=== PATIENT | male | born 1990 | race Caucasian/White ===

== ENCOUNTER 2016-12-30 04:06 | Emergency (ER) | payer BC ==
[2016-12-30] MEDS ORDERED: IPRATROPIUM/ALBUTEROL 0.5-2.5 MG/3 ML AMPUL NEB ONE ×2 (04:15→05:53)
[2016-12-30] MEDS ORDERED: PREDNISONE 20 MG TABLET PO ONE (04:15)
[2016-12-30] MEDS: ALBUTEROL SULFATE 0.083% NEB 2.5 MG/3 ML AMPUL NEB SCH ×2 (04:21→08:04)
--- NOTE | 2016-12-30 06:01 | ER Document Report ---
ED Respiratory Problem - General Mode of Arrival: Ambulatory Information source: Patient TRAVEL OUTSIDE OF THE [place] IN LAST 30 DAYS: No - HPI Patient complains to provider of: Cough, Short of breath Onset: Yesterday Duration: Continuous Context: Other - see HPI Associated symptoms: Other - See HPI <EDWARD PERERA - Last Filed: 12/30/16 06:04> <REGGIE MADDOX - Last Filed: 12/30/16 07:13> - General Chief Complaint: Shortness Of Breath Stated Complaint: CHEST PAIN/DIFFICULTY BREATHING Notes: 26 year old male with no prior medical problems (asthma as a child) presents to the ED complaining of shortness of breath that started yesterday. Patient reports that he has had a cough and a "deep chest burning" for the past 2 days. Patient has received a breathing treatment and reports that it helped temporarily. Patient denies abdominal pain. Patient had the flu 3 weeks ago. Patient denies history of blood clots or smoking. (EDWARD PERERA) - Related Data Allergies/Adverse Reactions: amoxicillin [Amoxicillin] Allergy (Verified 12/30/16 04:13) cefaclor [From Ceclor] Allergy (Verified 12/30/16 04:13) sulfamethoxazole [From Septra] Allergy (Verified 12/30/16 04:13) trimethoprim [From Septra] Allergy (Verified 12/30/16 04:13) Past Medical History - General Information source: Patient - Social History Smoking Status: Never Smoker Chew tobacco use (# tins/day): No Frequency of alcohol use: None Drug Abuse: None Family History: Hypertension - Medical History Medical History: Negative Renal/ Medical History: Denies: Hx Peritoneal Dialysis Surgical Hx: Negative - Immunizations Hx Diphtheria, Pertussis, Tetanus Vaccination: Yes <EDWARD PERERA - Last Filed: 12/30/16 06:04> Review of Systems - Review of Systems Constitutional: See HPI, Recent illness - flu 3 weeks ago EENT: No symptoms reported Cardiovascular: See HPI, Chest pain - "burning" Respiratory: See HPI, Cough, Short of breath Gastrointestinal: No symptoms reported. denies: Abdominal pain Genitourinary: No symptoms reported Male Genitourinary: No symptoms reported Musculoskeletal: No symptoms reported Skin: No symptoms reported Hematologic/Lymphatic: No symptoms reported Neurological/Psychological: No symptoms reported -: Yes All other systems reviewed and negative <PERERAEDWARD - Last Filed: 12/30/16 06:04> Physical Exam - Vital signs Interpretation: Tachycardic - General General appearance: Alert In distress: None - HEENT Head: Normocephalic, Atraumatic Eyes: Normal Extraocular movements intact: Yes Pupils: PERRL - Respiratory Respiratory status: No respiratory distress - Patient had already received a breathing treatment prior to examination. Breath sounds: Wheezing - slight expiratory wheeze bilaterally. - Cardiovascular Rhythm: Regular, Tachycardia Heart sounds: Normal auscultation - Abdominal Inspection: Normal - Back Back: Normal - Extremities General upper extremity: Normal inspection, Normal ROM General lower extremity: Normal inspection, Normal ROM - Neurological Neuro grossly intact: Yes Cognition: Normal Orientation: AAOx4 [place] Coma Scale Eye Opening: Spontaneous Lisa Coma Scale Verbal: Oriented [place] Coma Scale Motor: Obeys Commands [place] Coma Scale Total: 15 Speech: Normal - Psychological Associated symptoms: Normal affect, Normal mood - Skin Skin Temperature: Warm Skin Moisture: Dry Skin Color: Normal <PERERAEDWARD - Last Filed: 12/30/16 06:04> Course <PERERAEDWARD - Last Filed: 12/30/16 06:04> - Diagnostic Test Radiology reviewed: Image reviewed, Reports reviewed <REGGIE MADDOX - Last Filed: 12/30/16 07:13> - Re-evaluation Re-evalutation: 12/30/16 07:10 Patient feels better after breathing treatment and steroids. No acute findings on x-ray. Patient will be discharged home with inhaler and steroids. Follow- up with PMD. Return if any worsening or concerning symptoms. Stable for discharge. Grateful for care. (REGGIE MADDOX) - Vital Signs Vital signs: Temp Pulse Resp BP Pulse Ox 98.3 F 139 H 28 H 136/100 H 99 12/30/16 04:11 12/30/16 04:11 12/30/16 04:11 12/30/16 04:11 12/30/16 04:11 Discharge <EDWARD PERERA - Last Filed: 12/30/16 06:04> <REGGIE MADDOX - Last Filed: 12/30/16 07:13> - Discharge Clinical Impression: Bronchospasm Condition: Stable Disposition: HOME, SELF-CARE Instructions: Bronchospasm ([facility]) Prescriptions: Albuterol Sulfate [Proair HFA Inhalation Aerosol 8.5 gm MDI] 2 puff IH Q4H PRN # 1 mdi PRN Reason: Prednisone [Deltasone 20 mg Tablet] 40 mg PO DAILY #6 tablet Forms: Return to Work Scribe Attestation: 12/30/16 07:13 I personally performed the services described in the documentation, reviewed and edited the documentation which was dictated to the scribe in my presence, and it accurately records my words and actions. (REGGIE MADDOX) Scribe Documentation - Scribe Written by Doroteo:: Doroteo Arteaga, 12/30/2016 0602 acting as scribe for :: Harvey <EDWARD PERERA - Last Filed: 12/30/16 06:04>
[2016-12-30] MEDS ORDERED: ALBUTEROL SULFATE HFA (90 MCG/PUFF) 8 GM MDI (1 MDI/ER DISP) IH ONE (07:11)
[2016-12-30] MEDS ORDERED: KETOROLAC TROMETHAMINE INJ/PF 30 MG/1 ML SDV IV ONE (07:15)
[2016-12-30 08:54] VITALS: BP 118/70
--- NOTE | 2016-12-30 09:31 | EKG REPORT ---
SEVERITY:- BORDERLINE ECG - SINUS TACHYCARDIA BORDERLINE T ABNORMALITIES, INFERIOR LEADS : Confirmed by: Madhavi Goldstein 30-Dec-2016 09:30:49
== END 2016-12-30 07:25 | disposition home or self-care (01) ==
LOC: ER 04:06
DX: J98.01 Acute bronchospasm (principal); R06.02 Shortness of breath; R07.9 Chest pain, unspecified; R05 Cough
CPT/HCPCS: 93005; 94640 ×2; 99285; 71020; 93010; J7512; J3490; J7620

== ENCOUNTER 2019-03-06 19:04 | Emergency (ER) | payer BC ==
[2019-03-06] MEDS ORDERED: KETOROLAC TROMETHAMINE INJ/PF 30 MG/1 ML SDV IV ONE (19:20)
[2019-03-06] MEDS ORDERED: ONDANSETRON HCL INJ/PF 4 MG/2 ML SDV IV ONE (19:20)
--- NOTE | 2019-03-06 19:21 | ER Document Report ---
ED Medical Screen (RME) - General Chief Complaint: Abdominal Pain Stated Complaint: NAUSEA,RIGHT FLANK PAIN,DIARRHEA Time Seen by Provider: 03/06/19 19:14 Mode of Arrival: Ambulatory Information source: Patient Notes: Patient presents complaining of 4-day history of right low back pain that radiates to right lower quadrant. Patient states he does have nausea and has had diarrhea x6 episodes. Patient denies any fever or urinary symptoms. Patient does have a rash to the right upper extremity as well. I have greeted and performed a rapid initial assessment of this patient. A comprehensive ED assessment and evaluation of the patient, analysis of test results and completion of the medical decision making process will be conducted by additional ED providers. TRAVEL OUTSIDE OF THE [place] IN LAST 30 DAYS: No - Related Data Allergies/Adverse Reactions: amoxicillin [Amoxicillin] Allergy (Verified 03/06/19 19:05) cefaclor [From Ceclor] Allergy (Verified 03/06/19 19:05) sulfamethoxazole [From Septra] Allergy (Verified 03/06/19 19:05) trimethoprim [From Septra] Allergy (Verified 03/06/19 19:05) Past Medical History Renal/ Medical History: Denies: Hx Peritoneal Dialysis - Immunizations Hx Diphtheria, Pertussis, Tetanus Vaccination: Yes Physical Exam - Vital signs Vitals: Temp Pulse Resp BP Pulse Ox 98.2 F 92 18 174/109 H 97 03/06/19 19:08 03/06/19 19:08 03/06/19 19:08 03/06/19 19:08 03/06/19 19:08 - Back Back: CVA tenderness - Right Course - Vital Signs Vital signs: Temp Pulse Resp BP Pulse Ox 98.2 F 92 18 174/109 H 97 03/06/19 19:08 03/06/19 19:08 03/06/19 19:08 03/06/19 19:08 03/06/19 19:08
--- NOTE | 2019-03-06 21:06 | RADIOLOGY REPORT (SQ) ---
EXAM DESCRIPTION: CT ABDOMEN PELVIS WITHOUT IV CONTRAST COMPLETED DATE/TME: 03/06/2019 19:19 CLINICAL HISTORY: R flank, RLQ pain COMPARISON: None Available TECHNIQUE: Contiguous axial images of the abdomen and pelvis were obtained followed by reconstruction images. This exam was performed according to our departmental dose-optimization program, which includes automated exposure control, adjustment of the mA and/or kV according to patient size and/or use of iterative reconstruction technique. FINDINGS: There is a posterior right diaphragmatic hernia with fatty component only, Bochdalek hernia. The liver is of decreased attenuation compatible with fatty infiltration. Calcifications within the pelvis compatible with phleboliths. The liver, spleen, pancreas and kidneys are otherwise within normal limits. There is no hydronephrosis or renal stones. The gallbladder is unremarkable by CT criteria. Adrenal glands are within normal limits. Aorta is of normal caliber and tapering. There is no free fluid in the abdomen or pelvis. There is no bowel obstruction. There is no stranding of the mesenteric fat to suggest an inflammatory response. The appendix is within normal limits. There is no pericecal inflammation. IMPRESSION: No acute intra-abdominal abnormality.
[2019-03-06 21:40] LABS: ABSOLUTE EOSINOPHILS # (AUTO) 0.1 10^3/uL (0.0-0.6); ABSOLUTE LYMPHOCYTES (AUTO) 3.6 10^3/uL (0.5-4.7); ABSOLUTE MONOCYTES (AUTO) 0.6 10^3/uL (0.1-1.4); ABSOLUTE NEUT (AUTO) 4.6 10^3/uL (1.7-8.2); BASOPHILS % (AUTO) 0.5 % (0-2); EOSINOPHILS % (AUTO) 1.5 % (0-6); HEMATOCRIT 46.2 % (37.9-51.0); HEMOGLOBIN 16.3 g/dL (13.5-17.0); LYMPHOCYTES % (AUTO) 39.8 % (13-45); MEAN CORPUSCULAR HEMOGLOBIN 31.8 pg (27.0-33.4); MEAN CORPUSCULAR HGB CONC 35.2 g/dL (32.0-36.0); MEAN CORPUSCULAR VOLUME 90 fl (80-97); MONOCYTES % (AUTO) 7.2 % (3-13); PLATELET COUNT 274 10^3/uL (150-450); RED BLOOD COUNT 5.11 10^6/uL (4.35-5.55); RED CELL DISTRIBUTION WIDTH 13.2 % (11.5-14.0); TOTAL CELLS COUNTED % (AUTO) 100 %
[2019-03-06 21:48] LABS: APPEARANCE,URINE SLIGHTLY-CLOUDY; BILIRUBIN,URINE NEGATIVE (NEGATIVE); COLOR,URINE YELLOW; GLUCOSE, URINE NEGATIVE (NEGATIVE); KETONES,URINE NEGATIVE (NEGATIVE); LEUKOCYTE ESTERASE,URINE NEGATIVE (NEGATIVE); NITRITE,URINE NEGATIVE (NEGATIVE); PROTEIN,URINE NEGATIVE (NEGATIVE); URINE SPECIFIC GRAVITY 1.015; UROBILINOGEN,URINE NEGATIVE mg/dL (<2.0)
[2019-03-06 22:12] LABS: ALANINE AMINOTRANSFERASE 200 U/L (21-72); ALBUMIN 5.2 g/dL (3.5-5.0); ALKALINE PHOSPHATASE 82 U/L (38-126); ANION GAP 12 (5-19); ASPARTATE AMINO TRANSFERASE 105 U/L (17-59); BILIRUBIN,DIRECT 0.3 mg/dL (0.0-0.4); BLOOD UREA NITROGEN 12 mg/dL (7-20); CARBON DIOXIDE 28 mmol/L (22-30); CHLORIDE 99 mmol/L (98-107); GLUCOSE 92 mg/dL (75-110); POTASSIUM 3.9 mmol/L (3.6-5.0); TOTAL PROTEIN 8.4 g/dL (6.3-8.2)
[2019-03-06] MEDS ORDERED: LORAZEPAM 1 MG TABLET PO ONE (23:17)
--- NOTE | 2019-03-06 23:23 | ER Document Report ---
ED General - General Chief Complaint: Abdominal Pain Stated Complaint: NAUSEA,RIGHT FLANK PAIN,DIARRHEA Time Seen by Provider: 03/06/19 19:14 Mode of Arrival: Ambulatory TRAVEL OUTSIDE OF THE [place] IN LAST 30 DAYS: No - Related Data Allergies/Adverse Reactions: amoxicillin [Amoxicillin] Allergy (Verified 03/06/19 19:05) cefaclor [From Ceclor] Allergy (Verified 03/06/19 19:05) sulfamethoxazole [From Septra] Allergy (Verified 03/06/19 19:05) trimethoprim [From Septra] Allergy (Verified 03/06/19 19:05) Past Medical History - General Information source: Patient - Social History Smoking Status: Never Smoker Chew tobacco use (# tins/day): No Frequency of alcohol use: Heavy Drug Abuse: None Family History: Hypertension Patient has suicidal ideation: No Patient has homicidal ideation: No Renal/ Medical History: Denies: Hx Peritoneal Dialysis - Immunizations Hx Diphtheria, Pertussis, Tetanus Vaccination: Yes Physical Exam - Vital signs Vitals: Temp Pulse Resp BP Pulse Ox 98.2 F 92 18 174/109 H 97 03/06/19 19:08 03/06/19 19:08 03/06/19 19:08 03/06/19 19:08 03/06/19 19:08 Course - Re-evaluation Re-evalutation: 03/06/19 23:20 CBC unremarkable, CMP shows mildly elevated LFTs with an AST of 105 and ALT of 200, urinalysis unremarkable, no blood and no signs of infection, pain does not radiate to his testicles and he does not have any penile discharge. Rash on his arms is consistent with folliculitis, this will be treated with clindamycin as he is allergic to cephalosporins, penicillins and sulfa drugs. CT scan of the abdomen and pelvis reveals a right diaphragmatic fatty hernia that is unlikely to be causing these symptoms, normal appendix and normal gallbladder, no free fluid in the abdomen and no stranding of the mesenteric fat. Discussed with patient and that given his habit of drinking 12-18 beers a night and his elevated LFTs that some of his pain may be coming from his liver. Discussed that the patient definitely needs to quit drinking. Patient is agreeable to taking Librium to help prevent withdrawal symptoms. Patient has not actually had any alcohol for approximately 48 hours so we will start him on Librium 25 mg every 8 hours and then rapidly transition him to every 12 hours then once a day then stop. Patient has been given a handout with the various mental health resources in the area as he states he drinks because he has anxiety and dif ficulty sleeping. Also recommended that [facility] as he feels some of this is related to having been in the [employer] for a number of years. Patient is not suicidal or homicidal, only symptoms of withdrawal or hypertension at this time, no indication for acute hospitalization. Discharged home. - Vital Signs Vital signs: Temp Pulse Resp BP Pulse Ox 98.2 F 92 18 174/109 H 97 03/06/19 19:08 03/06/19 19:08 03/06/19 19:08 03/06/19 19:08 03/06/19 19:08 - Laboratory Result Diagrams: 03/06/19 21:27 03/06/19 21:27 Laboratory results interpreted by me: 03/06/19 21:27 AST 105 H ALT 200 H Total Protein 8.4 H Albumin 5.2 H Discharge - Discharge Clinical Impression: Transaminitis, Liver pain, Folliculitis Hypertension Qualifiers: Hypertension type: unspecified Qualified Code(s): I10 - Essential (primary) hypertension Alcohol withdrawal Qualifiers: Complication of substance-induced condition: uncomplicated Qualified Code(s): F10.230 - Alcohol dependence with withdrawal, uncomplicated Condition: Stable Disposition: HOME, SELF-CARE Additional Instructions: Your abdominal pain is likely coming from temporary damage to your liver from drinking. I recommend you quit drinking completely. You have very mild signs of alcohol withdrawal today. We have given you a dose of Ativan here and written new prescription of Librium to use at home. I would like you take 1 tablet of Librium every 8 hours on Thursday, then 1 tablet every 12 hours on Thursday then take 1 tablet in the morning on Thursday then stop. This should get you the rest of the way through withdrawal without significant symptoms. If you develop vomiting, sweating, hallucinations or shaking please return to the emergency department. I recommend that you follow-up with behavioral health specialist such as psychiatry or psychology as an outpatient. For the rash on your arm I prescribed you clindamycin. This is likely a mild bacterial infection of your hair follicles and should resolve within 5 to 7 days. Please return to the emergency department for any new or concerning symptoms Prescriptions: Chlordiazepoxide HCl [Librium 25 mg Capsule] 1 cap PO ASDIR PRN 6 Days #120 capsule PRN Reason: Clindamycin HCl 300 mg PO TID #21 capsule Forms: Return to Work Referrals: JEREMIE WHITING MD [NO LOCAL MD] - Follow up as needed
[2019-03-07 00:11] VITALS: BP 151/84
--- NOTE | 2019-03-07 00:35 | ER Document Report ---
Entered by MAURO TAPIA SCRIBE 03/07/19 0020 Acting as scribe for:MAGGY DAVEY DO ED General - General Chief Complaint: Abdominal Pain Stated Complaint: NAUSEA,RIGHT FLANK PAIN,DIARRHEA Time Seen by Provider: 03/06/19 19:14 Primary Care Provider: JEREMIE WHITING MD [NO LOCAL MD] - Follow up as needed Mode of Arrival: Ambulatory Information source: Patient Notes: Patient is a 28 year old male who drinks on a daily basis presents to the emergency department complaining of multiple symptoms including RLQ abdominal pain, right flank pain, nausea, diarrhea, BUE rash and fatigue. Patient states he began to have right lower quadrant abdominal pain 3 days ago followed by itchiness, diarrhea and intermittent nausea. Patient describes the rash as a redness over his BUE. Patient states his abdominal and back pain radiates into his right lower hip. He denies any fevers, vomiting, decreased appetite, burning with urination or penile or testicle pain. Patient reports being a heavy drinker further stating he drinks approximately 12-18 beers every night. He reports being an anxious person which is why he consumes alcohol. He does report having not consumed any alcohol since 2 days ago and has not had any shakiness or hallucinations, admits increased irritability. TRAVEL OUTSIDE OF THE [place] IN LAST 30 DAYS: No - Related Data Allergies/Adverse Reactions: amoxicillin [Amoxicillin] Allergy (Verified 03/06/19 19:05) cefaclor [From Ceclor] Allergy (Verified 03/06/19 19:05) sulfamethoxazole [From Septra] Allergy (Verified 03/06/19 19:05) trimethoprim [From Septra] Allergy (Verified 03/06/19 19:05) Past Medical History - General Information source: Patient - Social History Smoking Status: Never Smoker Cigarette use (# per day): No Chew tobacco use (# tins/day): Yes Frequency of alcohol use: Heavy - 12-18 beers a night Drug Abuse: None Lives with: Family Family History: Hypertension Patient has suicidal ideation: No Patient has homicidal ideation: No - Immunizations Hx Diphtheria, Pertussis, Tetanus Vaccination: Yes Review of Systems - Review of Systems Constitutional: No symptoms reported EENT: No symptoms reported Cardiovascular: No symptoms reported Respiratory: No symptoms reported Gastrointestinal: See HPI, Abdominal pain, Nausea Genitourinary: No symptoms reported Male Genitourinary: No symptoms reported Musculoskeletal: See HPI Skin: See HPI Hematologic/Lymphatic: No symptoms reported Neurological/Psychological: See HPI - Alcoholism and irritability. Physical Exam - Vital signs Vitals: Temp Pulse Resp BP Pulse Ox 98.2 F 92 18 174/109 H 97 03/06/19 19:08 03/06/19 19:08 03/06/19 19:08 03/06/19 19:08 03/06/19 19:08 Interpretation: Hypertensive - Notes Notes: GENERAL: Alert, interacts well. No acute distress. No tremors, no signs of withdrawal. HEAD: Normocephalic, atraumatic. EYES: Pupils equal, round, and reactive to light. Extraocular movements intact. ENT: Oral mucosa moist, tongue midline. NECK: Full range of motion. Supple. Trachea midline. LUNGS: Clear to auscultation bilaterally, no wheezes, rales, or rhonchi. No respiratory distress. HEART: Regular rate and rhythm. No murmurs, gallops, or rubs. ABDOMEN: Soft, minimal right lower quadrant tenderness to palpation. Non-diste nded. Bowel sounds present in all 4 quadrants. No guarding, rigidity, or rebound. EXTREMITIES: Moves all 4 extremities spontaneously. No edema, radial and dorsalis pedis pulses 2/4 bilaterally. No cyanosis. NEUROLOGICAL: Alert and oriented x3. Normal speech. PSYCH: Normal affect, normal mood. SKIN: Warm, dry. Diffuse erythematous rash with diffuse pustules of the hair follicles over the BUE, similar rash across the upper back consistent with folliculitis. Course - Re-evaluation Re-evalutation: 03/06/19 23:20 CBC unremarkable, CMP shows mildly elevated LFTs with an AST of 105 and ALT of 200, urinalysis unremarkable, no blood and no signs of infection, pain does not radiate to his testicles and he does not have any penile discharge. Rash on his arms is consistent with folliculitis, this will be treated with clindamycin as he is allergic to cephalosporins, penicillins and sulfa drugs. CT scan of the abdomen and pelvis reveals a right diaphragmatic fatty hernia that is unlikely to be causing these symptoms, normal appendix and normal gallbladder, no free fluid in the abdomen and no stranding of the mesenteric fat. Discussed with patient and that given his habit of drinking 12-18 beers a night and his elevated LFTs that some of his pain may be coming from his liver. Discussed that the patient definitely needs to quit drinking. Patient is agreeable to taking Librium to help prevent withdrawal symptoms. Patient has not actually had any alcohol for approximately 48 hours so we will start him on Librium 25 mg every 8 hours and then rapidly transition him to every 12 hours then once a day then stop. Patient has been given a handout with the various mental health resources in the area as he states he drinks because he has anxiety and difficulty sleeping. Also recommended that patient consider [facility] as he feels some of this is related to having been in the [employer] for a number of years. Patient is not suicidal or homicidal, only symptoms of withdrawal or hyperte nsion at this time, no indication for acute hospitalization. Discharged home. - Vital Signs Vital signs: Temp Pulse Resp BP Pulse Ox 98.2 F 64 16 151/84 H 100 03/07/19 00:05 03/07/19 00:05 03/07/19 00:05 03/07/19 00:05 03/07/19 00:05 - Laboratory Result Diagrams: 03/06/19 21:27 03/06/19 21:27 Laboratory results interpreted by me: 03/06/19 21:27 AST 105 H ALT 200 H Total Protein 8.4 H Albumin 5.2 H Discharge - Discharge Clinical Impression: Transaminitis, Liver pain, Folliculitis Hypertension Qualifiers: Hypertension type: unspecified Qualified Code(s): I10 - Essential (primary) hypertension Alcohol withdrawal Qualifiers: Complication of substance-induced condition: uncomplicated Qualified Code(s): F10.230 - Alcohol dependence with withdrawal, uncomplicated Condition: Stable Disposition: HOME, SELF-CARE Additional Instructions: Your abdominal pain is likely coming from temporary damage to your liver from drinking. I recommend you quit drinking completely. You have very mild signs of alcohol withdrawal today. We have given you a dose of Ativan here and written new prescription of Librium to use at home. I would like you take 1 tablet of Librium every 8 hours on Thursday, then 1 tablet every 12 hours on Thursday then take 1 tablet in the morning on Thursday then stop. This should get you the rest of the way through withdrawal without significant symptoms. If you develop vomiting, sweating, hallucinations or shaking please return to the emergency department. I recommend that you follow-up with behavioral health specialist such as psychiatry or psychology as an outpatient. For the rash on your arm I prescribed you clindamycin. This is likely a mild bacterial infection of your hair follicles and should resolve within 5 to 7 days. Please return to the emergency department for any new or concerning symptoms Prescriptions: Chlordiazepoxide HCl [Librium 25 mg Capsule] 1 cap PO ASDIR PRN 6 Days #120 capsule PRN Reason: Clindamycin HCl 300 mg PO TID #21 capsule Forms: Return to Work Referrals: JEREMIE WHITING MD [NO LOCAL MD] - Follow up as needed I personally performed the services described in the documentation, reviewed and edited the documentation which was dictated to the scribe in my presence, and it accurately records my words and actions.
== END 2019-03-07 00:09 | disposition home or self-care (01) ==
LOC: ER 19:04
DX: F10.230 Alcohol dependence with withdrawal, uncomplicated (principal); K44.9 Diaphragmatic hernia without obstruction or gangrene; R74.0 Nonspecific elevation of levels of transaminase and lactic acid dehydrogenase [LDH]; R10.31 Right lower quadrant pain; R10.11 Right upper quadrant pain; R10.9 Unspecified abdominal pain; R11.0 Nausea; R19.7 Diarrhea, unspecified; L73.9 Follicular disorder, unspecified; I10 Essential (primary) hypertension; R53.83 Other fatigue; M54.9 Dorsalgia, unspecified; Z88.0 Allergy status to penicillin; Z88.1 Allergy status to other antibiotic agents; Z72.0 Tobacco use; Z88.2 Allergy status to sulfonamides
CPT/HCPCS: 99284; 96374; 96375; 36415; 85025; 80053; 81001; 74176; J1885; J2405